=== PATIENT | male | born 1955 | race Caucasian/White ===

== ENCOUNTER → 2021-02-12 | Outpatient (CLI) | payer MEDICARE | END | disposition home or self-care (01) | LOC: STAR 14:12 | PROVIDERS: ATTEND Family Medicine | DX: Z01.818 Encounter for other preprocedural examination (principal); I20.9 Angina pectoris, unspecified; E72.11 Homocystinuria; R00.1 Bradycardia, unspecified | CPT/HCPCS: 93005 ==

== ENCOUNTER 2021-03-11 10:16 | Outpatient (CLI) | payer MEDICARE | END 2021-03-11 23:59 | disposition home or self-care (01) | LOC: CARD 10:16 | PROVIDERS: ATTEND Family Medicine | DX: I10 Essential (primary) hypertension (principal); R07.9 Chest pain, unspecified | CPT/HCPCS: 93017 ==